=== PATIENT | male | born 1960 | race Caucasian/White ===

== ENCOUNTER 2018-03-24 08:47 | Inpatient (IN) ==
[2018-03-24] MEDS ORDERED: Chlorhexidine Gluconate 2% 1 Pack (2 Cloths) TOPICAL SCH (09:30)
[2018-03-24] MEDS ORDERED: Metoprolol Tartrate 25 MG Tablet PO SCH (09:30)
[2018-03-24] MEDS ORDERED: Chlorhexidine 4% Topical 120 APPLIC/120 ML Bottle TOPICAL SCH (09:30)
[2018-03-24] MEDS ORDERED: Sodium Chlor 0.9% Inj 500 ML IV.SIG SCH (10:00)
[2018-03-24] MEDS ORDERED: Vancomycin Inj 1 GM/200 ML PIGGYBACK IV.SIG SCH (10:00)
[2018-03-24] MEDS ORDERED: Propofol Inj 500 MG/50 ML Vial ONE (10:28)
[2018-03-24] MEDS ORDERED: HYDROmorphone PF Inj 2 MG/ML Vial ONE ×4 (10:28→20:04)
[2018-03-24] MEDS ORDERED: Bupivacaine/Epinephrine Inj 0.25% 50 ML Vial ONE (10:51)
[2018-03-24] MEDS: ceFAZolin 2 GM Premix Inj 2 GM/50 ML PIGGYBACK IV.SIG SCH ×2 (11:46→15:35)
[2018-03-24] MEDS ORDERED: Phenylephrine/NS 1000 MCG/10ML Syringe IV.PUSH ONE (12:00)
[2018-03-24] MEDS ORDERED: Lidocaine PF 1% Inj 5 ML Syringe INFILTRATN ONE (12:00)
[2018-03-24] MEDS ORDERED: Sodium Chlor 0.9% Inj 500 ML IV.SIG ONE (12:00)
[2018-03-24] MEDS ORDERED: fentaNYL Citrate Inj 100 MCG/2 ML Ampul ONE ×2 (14:43→17:08)
--- NOTE | 2018-03-24 14:49 | P.OP ---
- Preoperative Diagnosis (1) Cervical stenosis of spinal canal Comment: C3-4, C4-5, C5-6. Osteophyte disc complex C3-4, C4-5, C5-6. Status post anterior cervical fusion C6-7, remote. Cervical myelopathy. Cervical radiculopathy - Postoperative Diagnosis (1) Cervical stenosis of spinal canal Comment: C3-4, C4-5, C5-6. Osteophyte disc complex C3-4, C4-5, C5-6. Status post anterior cervical fusion C6-7, remote. Cervical myelopathy. Cervical radiculopathy Date of procedure: 03/24/18 Procedure: Exploration anterior cervical spine. Removal of anterior spinal segmental instrumentation, C6-7. Anterior cervical discectomy decompression and bilateral foraminotomies, C3-4. Anterior cervical discectomy decompression and bilateral foraminotomies, C4-5. Anterior cervical discectomy decompression and bilateral foraminotomies, C5-6. Left anterior iliac crest bone graft Anesthesia: GETA Surgeon: Geovany Arias MD Slab Puller: Annamaria Garcia PA-C Operation and Findings: EBL: 100 cc INDICATIONS: This patient is a 57-year-old white male with a cervical myelopathy and evidence of bilateral cervical radiculopathy. This patient has had a previous ACDF C6-7 approximately 23 years ago. The patient had a right- sided foraminotomies, C4-5 in the past. He has significant spinal stenosis worse at the C5-6 level but also osteophyte disc complexes C3-4 and C4-5. He presents for surgical treatment. NOTE: Annamaria Garcia PA-C was present for the entire surgical procedure as my environmental assistant. In my medical opinion her skill and care was necessary for proper management of this patient PROCEDURE: The patient was brought to the operating room and anesthetized in the supine position. This patient was positioned supine on the radiolucent table. All pressure points were protected in the anterior cervical spine and iliac crest was scrubbed with alcohol followed by Hibiclens followed by ChloraPrep. A timeout was done and antibiotics were given within 1 hour time window. Lateral radiographic images were used identifying the proper level. A right anterior incision was made crossing the previous incision and along the region of the sternocleidomastoid and slightly medial.. The platysma was opened in line with the incision. Deep dissection continued in the interval between the carotid sheath and the esophagus. The longus-coli muscles were lifted on both sides and retractors were positioned allowing good exposure. Lateral radiographic images were used to identify the proper level. Dissection continued along the edges of the previous plate. Deep retractors were positioned allowing good visualization. The previous screws were removed in retrograde fashion using the proper technique for this plate. The plate was removed without difficulty. Some bleeding from the screw holes of C6 were noted. Bone wax was placed over this. Dissection allowed good visualization of the C5-6 level. Naselle style interosseous pins were placed at C5 and C6 allowing exposure to that level. The microscope was rolled into the field. A total discectomy was accomplished and posterior osteophytes were removed. The posterior longitudinal ligament and annulus was taken down. Bilateral foraminotomies were accomplished. The endplates were squared up anticipating later bone grafting. A blunt probe could be placed out each foramen without evidence of nerve root compromise. The C6 pin was placed up to C4. An anterior exposure was accomplished at the C4 -5 level. We performed a total discectomy with excision of the posterior annulus and posterior longitudinal ligament. Bilateral foraminotomies were accomplished. Osteophytes were removed. The endplates were squared up anticipating later bone grafting. A blunt probe could be placed out each foramen without evidence of nerve root compromise. The C5 pin was placed up to see 3. An anterior exposure was accomplished. We performed a total discectomy with excision of the posterior annulus and posterior longitudinal ligament. Bilateral foraminotomies were accomplished. Osteophytes were removed. The endplates were squared up anticipating later bone grafting. A blunt probe could be placed out each foramen without evidence of nerve root compromise. The left iliac crest was approached. A small stab incision was made allowing percutaneous access to the anterior iliac crest. Multiple cores of cancellous bone were harvested and taken to the back table to be used for later bone grafting. The wound was irrigated anesthetized and closed with 4-0 Vicryl followed by Dermabond. The case was turned over to Dr. Antwan Arias for fusion and instrumentation per his dictation. FINDINGS: There was evidence of a severe spinal stenosis at C5-6 and lesser at C4-5 and similar at C3-4. Bilateral foraminotomies were accomplished. The most aggressive foraminal stenosis was to the left at C4-5. There was no complication that was appreciated. There were no abnormal potentials registered by the neurophysiologist during the entire case. NOTE: This surgery was performed in 2 parts. The first part was the neurosurgical decompression performed under the variable power stereo microscope by the undersigned in addition to the bone graft. The second portion of the surgery will be performed by the orthopedic spine component by co -surgeon, Dr. Antwan Arias for the anterior fusion with interbody cage and anterior plate. The skill of 2 surgeons was necessary to perform distinct separate procedural services as dictated above and dictated in the following operative note by Dr. Antwan Arias.
[2018-03-24] MEDS ORDERED: Promethazine 25 MG Supp RECTAL PRN ×2 (16:10→19:46)
[2018-03-24] MEDS ORDERED: Post-op Orders (for Pharmacy) OTHER STA ×3 (16:10→19:46)
[2018-03-24] MEDS ORDERED: Bisacodyl 10 MG Supp RECTAL PRN ×3 (16:10→19:46)
--- NOTE | 2018-03-24 16:29 | XR ---
EXAM DATE: 03/24/2018 4:24 PM EDT AGE/SEX: 57 years / Male INDICATIONS: C3-4, C4-5, C5-6 anterior diskectomy and interbody fusion with intervertebral cages. CLINICAL DATA: This is the patient's initial encounter. Patient reports that signs and symptoms have been present for 1 day and indicates a pain score of Nonresponsive. MEDICAL/SURGICAL HISTORY: None. None. COMPARISON: No prior exams available for comparison. FINDINGS: Series of intraoperative images show 4 level anterior fixation from C3-4 through C5-6 with interverte bral disc prostheses. Hardware is all intact. CONCLUSION: 4 level anterior fixation with intervertebral disc prostheses from C3 through C6. Hardware is all int act and appropriately positioned Electronically signed by: Alfredo Rico MD 03/24/2018 4:28 PM EDT
--- NOTE | 2018-03-24 17:26 | MP ---
cc: Antwan Arias MD, Albert W MD Keller,Aguilar Gilliam DATE OF OPERATION: 03/24/2018 PREOPERATIVE DIAGNOSES: 1. C5-C6 herniated nucleus pulposus, osteophyte disk complex, moderate spinal stenosis, moderate spinal cord compression. 2. C4-5 central right-sided herniated nucleus pulposus, osteophyte disk complex, moderately severe right-sided foraminal stenosis, status post cervical laminectomy. 3. C3-4 central right-sided herniated nucleus pulposus, osteophyte disk complex, moderate right-sided foraminal stenosis 4. Status post C6-C7 ACDF with spinal instrumentation 5. 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 6. Cervical spine degenerative disease osteoarthritis. 7. History of psoriatic arthritis. POSTOPERATIVE DIAGNOSES: 1. C5-C6 herniated nucleus pulposus, osteophyte disk complex, moderate spinal stenosis, moderate spinal cord compression. 2. C4-5 central right-sided herniated nucleus pulposus, osteophyte disk complex, moderately severe right-sided foraminal stenosis, status post cervical laminectomy. 3. C3-4 central right-sided herniated nucleus pulposus, osteophyte disk complex, moderate right-sided foraminal stenosis 4. Status post C6-C7 ACDF with spinal instrumentation 5. 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 6. Cervical spine degenerative disease osteoarthritis. 7. History of psoriatic arthritis. PROCEDURE: C3-4, C4-5, C5-6 anterior interbody fusion;, C3-4 C4-5, C5-6 Spinet ACC anterior cervical cage; C3-C6 anterior spinal instrumentation using Spinet Rauscher anterior spinal instrument; C3-4, C4-5, C5-6 Spinet ACC anterior cages. SURGEON: Antwan Arias MD ANESTHESIA: Silva Baez PA-C. ESTIMATED BLOOD LOSS: 500 mL for entire case CONDITION: Stable. DRAINS: 1. COMPLICATIONS: None. ANESTHESIA: General. PLAN OF ACTIVITY: Per orders. PROCEDURE IN DETAIL: Dr. Geovany Arias and myself were co-surgeons. Dr. Geovany Arias performed the neurosurgical decompression portion of the procedure. He performed a C3-4, C4-5, C5-6 anterior cervical diskectomy, anterior decompression foraminotomies. He also performed C6-7 removal of anterior spinal instrumentation, anterior cervical fusion and left anterior iliac crest bone grafting. I was not present for his portion of the procedure. As co-surgeon, I performed the orthopedic spinal fusion and stabilization, which is well described in my operative note. My prosthetics assistant Silva Baez PA-C was present for my portion of the surgical case. She was medically necessary for the entire case, because of the complexity of the case and to facilitate the performance of the procedure. The FIREPOT OPERATOR AND TENDER at the back table is not a skill set for this case to manipulate the instruments, e.g., multiple different types of soft tissue retractors, trial implants, and permanent implants. PROCEDURE IN DETAIL: The patient was brought into the operating room, had satisfactory anesthesia by department of anesthesia. Dr. Geovany Arias performed the decompressive portion of the procedure. The endplates at C6-7 were prepared for fusion. The hyaline cartilage endplate were removed using angled curettes and burs. A 7 10 x 12 ACC cage was placed in the interspace. Anterior iliac crest autologous bone graft used for interbody fusion under fluoroscopic guidance. The endplates of C4-5 were prepared for fusion. The hyaline cartilage endplates were removed angled curettes and burs. A 6 10 x 12 ACC cage was placed in interspacer. Anterior iliac crest bone graft used under fluoroscopic guidance for interbody fusion. The patient's interspace at C3-4 were prepared for fusion. Hyaline cartilage endplate were removed using curettes and burs. A 6 10 x 12 ACC cage was placed in the interspace. Anterior iliac crest bone graft used under fluoroscopic guidance for interbody fusion. Osteophytes were removed, anterior cervical spine. This was with rongeurs and burs. A 69 mm Spinet Rauscher plate was used for anterior spinal implantation. Because of the patient's cervical lordosis, the plate was contoured to the appropriate dimensions. Two transfixion pins and 2 transfixion screws were used for positioning of the plate, which was checked under fluoroscopic guidance AP and lateral plane for appropriate positioning of the plate. Two screws were used in the vertebral body of C3, C4, C5, and C6. Each of the screws were 14 mm in length, 4.0 mm in diameter fixed angle screws. Each of the screw holes were drilled and each of the screws were inserted and each screw head was appropriately locked to the plate. The wound was irrigated with copious amounts of sterile saline antibiotic solution and the wound itself was dry. It was closed over 1/8 inch Hemovac drain. Wound was closed in multiple layers using a 3-0 Vicryl suture, skin approximated with running subcuticular 4-0 Vicryl, Dermabond and. sterile dressings were applied. The patient was placed in a [place] cervical orthosis. The patient tolerated the procedure well and arrived in the recovery room in stable and satisfactory condition. MD GONZALEZ Hurtado/ , 04:31 PM , 05:25 PM MTDD
[2018-03-24] MEDS ORDERED: lamoTRIgine 100 MG Tablet PO SCH (21:00)
[2018-03-24] MEDS ORDERED: Senna/Docusate Sodium 8.6/50 MG Tablet PO SCH (21:00)
[2018-03-24] MEDS ORDERED: TAPENTADOL 200 MG PO PRN (22:00)
[2018-03-24] MEDS: ALPRAZolam 0.5 MG Tablet PO PRN (22:36)
[2018-03-25] MEDS: Sod Chloride 0.9% Inj 1,000 ML IV.CONT SCH ×2 (02:51→08:54)
[2018-03-25] MEDS: Senna/Docusate Sodium 8.6/50 MG Tablet PO SCH ×2 (02:52→08:54)
--- NOTE | 2018-03-25 07:03 | P.PNOP ---
Subjective Interval history: POD#1 C3-C6 ACDF C/O dysphagia No c/o numbness/weakness Explained operative findings;answered multiple questions Physical Exam Vital signs: Vital Signs 03/24/18 10:15 03/24/18 17:00 03/24/18 17:15 Temperature 98.5 F 98.0 F 98.0 F Pulse Rate 104 H 102 H Respiratory Rate 18 14 14 Blood Pressure 142/92 H 163/102 H 151/96 H Pulse Oximetry 97 99 100 03/24/18 17:30 03/24/18 17:45 03/24/18 18:00 Temperature 98.0 F 98.0 F 98.0 F Pulse Rate 104 H 109 H 110 H Respiratory Rate 14 14 14 Blood Pressure 147/94 H 152/99 H 161/99 H Pulse Oximetry 100 100 97 03/24/18 18:15 18 18:30 03/24/18 18:45 Temperature 98.0 F 98.0 F 98.0 F Pulse Rate 112 H 110 H 110 H Respiratory Rate 14 14 14 Blood Pressure 150/91 H 138/81 133/70 Pulse Oximetry 96 98 97 03/24/18 19:00 03/24/18 19:15 03/24/18 19:30 Temperature 98.0 F 98.0 F 98.0 F Pulse Rate 107 H 110 H 110 H Respiratory Rate 14 14 14 Blood Pressure 134/74 132/71 134/71 Pulse Oximetry 97 96 97 03/24/18 19:45 03/24/18 20:54 03/25/18 00:30 Temperature 98.0 F 97.9 F 98.2 F Pulse Rate 113 H 111 H 106 H Respiratory Rate 14 19 18 Blood Pressure 127/68 137/82 116/75 Pulse Oximetry 97 97 96 Intake & Output 03/24/18 03/24/18 03/25/18 06:59 18:59 06:59 Intake Total 2950 / 2950 460 / 460 Output Total 1100 / 1100 940 / 940 Balance 1850 / 1850 -480 / -480 Weight 89.8 kg 87.09 kg Intake: IV 1250 / 1250 100 / 100 LR 1000 mL Inj 1,000 ML @ 30 1000 / 1000 mls/hr IV.SIG .Q24H [facility] Rx#: [id number] Vancomycin Inj 1 gm In 200 ml @ 200 / 200 200 mls/hr IV.SIG [employer] [facility] Rx#:[id number] Ancef 2 GM Premix Inj 2 gm In 50 / 50 50 ml @ 100 mls/hr IV.SIG ETH[employer]LEN[employer] [facility] Rx#:[id number] Ancef Inj 1,000 MG In NS Inj 100 / 100 100 ML @ 200 mls/hr IV.SIG Q8H [facility] Rx#:[id number] Oral 360 / 360 Anesthesia Amount 1700 / 1700 Output: Urine 900 / 900 Estimated Blood Loss 500 / 500 Urine Amount (Catheter) 600 / 600 Indwelling Urethral Catheter 600 / 600 Wound Drainage 40 / 40 # 1 Anterior Neck Yinka 40 / 40 Other: Date of Last Bowel Movement 03/24/18 # Bowel Movements 0 Weight On Admission 89.8 kg Good strength UE,LE No hip pain Neg porter's - Urinary Catheter Management Indwelling Urethral Catheter Cath placed during this visit: yes, but has since been removed by the nurse Reason for continuing: Hourly intake/output Insertion date: 03/24/18 Insertion time: 11:20 Removal date: 03/24/18 Removal time: 16:28 Results - Imaging Impressions Cervical Spine X-Ray 03/24/18 00:00 CONCLUSION: 4 level anterior fixation with intervertebral disc prostheses from C3 through C6. Hardware is all intact and appropriately positioned Assessment and Plan - Ortho Post Op Day # 1 - Assessment and Plan Ortho stable D/C drain D/C home today if medically stable
[2018-03-25] MEDS ORDERED: Lisinopril 10 MG Tablet PO SCH (09:00)
[2018-03-25] MEDS ORDERED: lamoTRIgine 100 MG Tablet PO SCH (09:00)
[2018-03-25] MEDS ORDERED: Duloxetine 60 MG DR Capsule PO SCH (09:00)
[2018-03-25] MEDS ORDERED: Pregabalin 25 MG Capsule PO SCH (09:00)
[2018-03-25] MEDS: ALPRAZolam 0.5 MG Tablet PO PRN (11:14)
--- NOTE | 2018-03-25 13:06 | P.CON ---
History of Present Illness Service: Hospitalist Consult date: 03/25/18 Requesting Physician: Antwan Arias Reason for Consult: medical management. Primary Care Provider: No Primary Care Physician Family Provider: No Primary Care Physician Chief Complaint: spinal stenosis History of Present Illness: Mr. Pena is a pleasant 57-year-old male with a history of Tarlov cyst, cervical spinal stenosis, hypertension, anxiety who underwent surgical intervention on 03/25/2018. Surgical interventions included ACDF C3-C4 , C4-C5, C5-C6 as well as left anterior iliac crest bone graft, removal of anterior spinal segmental instrumentation C6-C7. Hospitalist service was consulted for medical management. At the time of this interview, patient is sitting at the side of his bed and eating lunch. He denies any acute concerns. He does inquire about one of his home medications (Tapentadol) to see if that can be restarted. He denies any chest pain, shortness of breath, fever, chills. No changes in bowel or bladder habits. Review of Systems All other systems reviewed negative except as stated in HPI PMFSH - History History Provided By: Significant Other - Medical History Medical History: Medical History (Last Updated 03/24/18 @ 10:10 by Jackie Rodriguez) Psoriatic arthritis - Surgical History Surgical History: Surgical History (Last Updated 03/24/18 @ 10:10 by Jackie Rodriguez) H/O hernia repair H/O laminectomy History of fusion of cervical spine Hx of nasal septoplasty - Tobacco History Second Hand Smoke Exposure: No Tobacco Use In Past 30 Days: No Smoking Status: Never smoker - Alcohol History How Often Do You Have a Drink Containing Alcohol: Never - Substance Use History Substance History: No History of Abuse - Travel History Recent Travel in the [place] Within the Last 8 Weeks: No Recent Travel Out of the Country Within the Last 8 Weeks: No Medications and Allergies Active Medications: Active Medications Hydrocodone Bitart/Acetaminophen ([place] 7.5/325) 1 tab PO Q4H PRN PRN Reason: BREAKTHROUGH PAIN Last Admin: 03/25/18 08:25 Dose: 1 tab Al Hydroxide/Mg Hydroxide (Milk Of Magnesia Liq) 30 ml PO Q12H PRN PRN Reason: Mild Constipation Alprazolam (Xanax) 0.5 mg PO PRN PRN PRN Reason: Anxiety Last Admin: 03/25/18 11:14 Dose: 0.5 mg Bisacodyl (Dulcolax Supp) 10 mg RECTAL DAILY PRN PRN Reason: SEVERE CONSITIPATION Duloxetine HCl (Cymbalta) 60 mg PO DAILY [facility] Last Admin: 03/25/18 08:24 Dose: 60 mg Eszopiclone (Lunesta) 3 mg PO [facility] Last Admin: 03/24/18 20:59 Dose: 3 mg Cefazolin Sodium 1,000 mg/ (Sodium Chloride) 100 mls @ 200 mls/hr IV.SIG Q8H [facility] Stop: 03/25/18 14:29 Last Admin: 03/25/18 05:02 Dose: 200 mls/hr Sodium Chloride (Ns Inj) 1,000 mls @ 80 mls/hr IV.CONT .[id number] [facility] Last Admin: 03/25/18 08:54 Dose: 80 mls/hr Lactulose (Lactulose Liq) 30 ml PO DAILY PRN PRN Reason: SEVERE CONSITIPATION Lamotrigine (Lamictal) 150 mg PO DAILY [facility] Lamotrigine (Lamictal) 200 mg PO [facility] Last Admin: 03/24/18 21:00 Dose: 200 mg Lisinopril (Prinivil) 10 mg PO DAILY [facility] Last Admin: 03/25/18 08:24 Dose: 10 mg Metoprolol Tartrate (Lopressor) 25 mg PO STOGIE PACKER [facility] Stop: 03/27/18 09:18 Miscellaneous (Pill Splitter) 1 each OTHER UNSCH PRN PRN Reason: PILL SPLIT Miscellaneous Information (Misc Nursing Information) 1 each OTHER UNSCH PRN PRN Reason: SEE LABEL COMMENTS Stop: 03/25/18 16:58 Ondansetron HCl (Zofran Odt) 4 mg PO Q6H PRN PRN Reason: NAUSEA OR VOMITING Ondansetron HCl (Zofran Inj) 4 mg IV.PUSH Q6H PRN PRN Reason: NAUSEA OR VOMITING Tapentadol 200 Mg 1 each PO BID PRN PRN Reason: PAIN SCALE 1 TO 10 Pregabalin (Lyrica) 25 mg PO DAILY [facility] Last Admin: 03/25/18 08:24 Dose: 25 mg Promethazine HCl (Phenergan Supp) 25 mg RECTAL Q6H PRN PRN Reason: NAUSEA OR VOMITING Promethazine HCl (Phenergan) 25 mg PO Q6H PRN PRN Reason: NAUSEA OR VOMITING Propranolol HCl (Inderal) 20 mg PO BID [facility] Last Admin: 03/25/18 08:23 Dose: 20 mg Senna/Docusate Sodium (Jayla-Colace) 1 tab PO BID [facility] Last Admin: 03/25/18 08:54 Dose: 1 tab Sennosides (Senokot) 17.2 mg PO Q12H PRN PRN Reason: Moderate Constipation Sodium Chloride (Ns Flush) 2 ml IV.FLUSH BID [facility] Last Admin: 03/25/18 08:54 Dose: 2 ml Sodium Chloride (Ns Flush) 2 ml IV.FLUSH PRN PRN PRN Reason: FLUSH AFTER USING IV ACCESS Vitamin D (Vitamin D3) 2,000 unit PO DAILY [facility] Last Admin: 03/25/18 08:24 Dose: 2,000 unit Allergies Allergy/AdvReac Type Severity Reaction Status Date / Time tramadol Allergy Severe Nausea/Vomi Verified 03/24/18 09:47 ting morphine Allergy Intermediate Nausea/Vomi Verified 03/24/18 09:47 ting sulfasalazine Allergy Intermediate Nausea/Vomi Verified 03/24/18 09:47 ting Home Medications Medication Instructions Recorded Confirmed Type alprazolam [Xanax] 0.5 mg PO PRN PRN 03/24/18 03/24/18 History cholecalciferol (vitamin D3) 2,000 unit PO DAILY 03/24/18 03/24/18 History [Vitamin D3] duloxetine [Cymbalta] 60 mg PO DAILY 03/24/18 03/24/18 History eszopiclone [Lunesta] 3 mg PO 03/24/18 03/24/18 History hydrocodone-acetaminophen 1 tab PO Q4-6H PRN 03/24/18 03/24/18 History lamotrigine [Lamictal] 150 mg PO DAILY 03/24/18 03/24/18 History lamotrigine [Lamictal] 200 mg PO 03/24/18 03/24/18 History lisinopril 10 mg PO DAILY 03/24/18 03/24/18 History pregabalin [Lyrica] 25 mg PO DAILY 03/24/18 03/24/18 History propranolol 20 mg PO BID 03/24/18 03/24/18 History tapentadol [Nucynta] 200 mg PO BID PRN 03/24/18 03/24/18 History Physical Exam Vital signs: Vital Signs 03/24/18 17:00 03/24/18 17:15 03/24/18 17:30 Temperature 98.0 F 98.0 F 98.0 F Pulse Rate 104 H 102 H 104 H Respiratory Rate 14 14 14 Blood Pressure 163/102 H 151/96 H 147/94 H Pulse Oximetry 99 100 100 03/24/18 17:45 03/24/18 18:00 03/24/18 18:15 Temperature 98.0 F 98.0 F 98.0 F Pulse Rate 109 H 110 H 112 H Respiratory Rate 14 14 14 Blood Pressure 152/99 H 161/99 H 150/91 H Pulse Oximetry 100 97 96 03/24/18 18:30 03/24/18 18:45 03/24/18 19:00 Temperature 98.0 F 98.0 F 98.0 F Pulse Rate 110 H 110 H 107 H Respiratory Rate 14 14 14 Blood Pressure 138/81 133/70 134/74 Pulse Oximetry 98 97 97 03/24/18 19:15 03/24/18 19:30 03/24/18 19:45 Temperature 98.0 F 98.0 F 98.0 F Pulse Rate 110 H 110 H 113 H Respiratory Rate 14 14 14 Blood Pressure 132/71 134/71 127/68 Pulse Oximetry 96 97 97 03/24/18 20:54 03/25/18 00:30 03/25/18 08:00 Temperature 97.9 F 98.2 F 97.7 F Pulse Rate 111 H 106 H 88 Respiratory Rate 19 18 17 Blood Pressure 137/82 116/75 143/88 H Pulse Oximetry 97 96 97 Intake & Output 03/24/18 03/25/18 03/25/18 18:59 06:59 18:59 Intake Total 2950 / 2950 460 / 460 1000 / 1000 Output Total 1100 / 1100 940 / 940 Balance 1850 / 1850 -480 / -480 1000 / 1000 Weight 89.8 kg 87.09 kg Intake: IV 1250 / 1250 100 / 100 1000 / 1000 NS Inj 1,000 ML @ 80 mls/hr IV. 1000 / 1000 CONT .[id number] [facility] Rx#:[id number] LR 1000 mL Inj 1,000 ML @ 30 1000 / 1000 mls/hr IV.SIG .Q24H [facility] Rx#: [id number] Vancomycin Inj 1 gm In 200 ml @ 200 / 200 200 mls/hr IV.SIG STOGIE PACKER [facility] Rx#:[id number] Ancef 2 GM Premix Inj 2 gm In 50 / 50 50 ml @ 100 mls/hr IV.SIG STOGIE PACKER [facility] Rx#:[id number] Ancef Inj 1,000 MG In NS Inj 100 / 100 100 ML @ 200 mls/hr IV.SIG Q8H [facility] Rx#:[id number] Oral 360 / 360 Anesthesia Amount 1700 / 1700 Output: Urine 900 / 900 Estimated Blood Loss 500 / 500 Urine Amount (Catheter) 600 / 600 Indwelling Urethral Catheter 600 / 600 Wound Drainage 40 / 40 # 1 Anterior Neck Yinka 40 / Other: Date of Last Bowel Movement 03/24/18 # Bowel Movements 0 Weight On Admission 89.8 kg Narrative: GENERAL: This is a well-nourished, well-developed patient, in no apparent distress. SKIN: No rashes, ecchymoses or lesions. Warm and dry. HEAD: Atraumatic. Normocephalic. No temporal or scalp tenderness. EYES: Pupils equal round and reactive. No injection or drainage. ENT: Nose without bleeding, purulent drainage or septal hematoma. Airway patent. NECK: Trachea midline. No lymphadenopathy. Supple, nontender, no meningeal signs. CARDIOVASCULAR: Regular rate and rhythm without murmurs, gallops, or rubs. No JVD. RESPIRATORY: Clear to auscultation. Breath sounds equal bilaterally. No wheezes , rales, or rhonchi. GASTROINTESTINAL: Abdomen soft, non-tender, nondistended. No guarding. MUSCULOSKELETAL: Extremities without clubbing, cyanosis, or edema. NEUROLOGICAL: Awake and alert. Cranial nerves II through XII intact. No focal neurological deficits. Normal speech. - Urinary Catheter Management Indwelling Urethral Catheter Cath placed during this visit: yes, but has since been removed by the nurse Reason for continuing: Hourly intake/output Insertion date: 03/24/18 Insertion time: 11:20 Removal date: 03/24/18 Removal time: 16:28 Assessment and Plan - Assessment (1) Cervical stenosis of spinal canal Code(s): M48.02 - Spinal stenosis, cervical region Status: Acute - Plan Patient is a pleasant 57-year-old male with a history of cervical spinal stenosis, hypertension, anxiety who underwent ACDF on 03/25/2018. Cervical spinal stenosis -Status post 4 level ACDF. -Pain is adequately controlled Hypertension -continue lisinopril 10 mg daily Anxiety -continue 0.5 mg p.o. as needed. Overall, patient is hemodynamically stable. He is tolerating diet well. From medical standpoint, he can be discharged. Full code. Thank you for the consult. We will continue to follow this patient with you while patient is in the hospital.
[2018-03-25 14:10] VITALS: RESP 18
[2018-03-25 18:05] VITALS: BP 151/88; PULSE 79; TEMP 97.6; O2SAT 98
== END 2018-03-25 18:30 | disposition home or self-care (01) ==
LOC: HSDI 08:47 → N06 20:28
PROVIDERS: ADMIT Orthopaedic Surgery Orthopaedic Surgery of the Spine; ATTEND Orthopaedic Surgery Orthopaedic Surgery of the Spine

== ENCOUNTER 2018-04-07 08:23 | Inpatient (IN) ==
[2018-04-07] MEDS ORDERED: Chlorhexidine 4% Topical 120 APPLIC/120 ML Bottle TOPICAL SCH (09:15)
[2018-04-07] MEDS ORDERED: Chlorhexidine Gluconate 2% 1 Pack (2 Cloths) TOPICAL SCH (09:15)
[2018-04-07] MEDS ORDERED: Metoprolol Tartrate 25 MG Tablet PO SCH (09:15)
[2018-04-07] MEDS ORDERED: ceFAZolin 2 GM Premix Inj 2 GM/50 ML PIGGYBACK IV.SIG SCH (10:00)
[2018-04-07] MEDS ORDERED: Vancomycin Inj 1 GM/200 ML PIGGYBACK IV.SIG SCH (10:00)
[2018-04-07] MEDS ORDERED: Sodium Chlor 0.9% Inj 500 ML IV.SIG PRN (10:00)
[2018-04-07] MEDS ORDERED: Hypromellose 0.3% Opth Gel 10 GM Bottle ONE (10:24)
[2018-04-07] MEDS ORDERED: HYDROmorphone PF Inj 2 MG/ML Vial ONE ×3 (10:59→14:39)
[2018-04-07] MEDS ORDERED: Propofol Inj 500 MG/50 ML Vial ONE (11:00)
[2018-04-07] MEDS ORDERED: Famotidine PF Inj 20 MG/2 ML Vial ONE (11:00)
[2018-04-07] MEDS ORDERED: Bupivacaine/Epinephrine Inj 0.25% 50 ML Vial ONE (11:08)
[2018-04-07] MEDS ORDERED: Glycopyrrolate Inj 1 MG/5 ML Syringe IV.PUSH ONE (12:00)
[2018-04-07] MEDS ORDERED: Neostigmine Inj 5 MG/5 ML Syringe IV.PUSH ONE (12:00)
[2018-04-07] MEDS ORDERED: Phenylephrine/NS 1000 MCG/10ML Syringe IV.PUSH ONE (12:00)
[2018-04-07] MEDS ORDERED: Lidocaine PF 1% Inj 5 ML Syringe INFILTRATN ONE (12:00)
[2018-04-07] MEDS ORDERED: Post-op Orders (for Pharmacy) OTHER STA (13:43)
[2018-04-07] MEDS ORDERED: Bisacodyl 10 MG Supp RECTAL PRN (13:43)
--- NOTE | 2018-04-07 13:55 | P.OP ---
- Preoperative Diagnosis (1) Cervical spine ankylosis Comment: C3-4, C4-5, C5-6 (2) Cervical stenosis of spinal canal Comment: C3-4, C4-5, C5-6. Osteophyte disc complex C3-4, C4-5, C5-6. Status post anterior cervical fusion C6-7, remote. Cervical myelopathy. Cervical radiculopathy - Postoperative Diagnosis (1) Cervical stenosis of spinal canal Comment: C3-4, C4-5, C5-6. Osteophyte disc complex C3-4, C4-5, C5-6. Status post anterior cervical fusion C6-7, remote. Cervical myelopathy. Cervical radiculopathy (2) Cervical spine ankylosis Date of procedure: 04/07/18 Procedure: Posterior cervical fusion C3-4, C4-5, C5-6. Placement of intra-facet cages bilateral C3-4, C4-5, C5-6 with screw fixation. Left posterior iliac crest bone graft Anesthesia: GETA Surgeon: Geovany Arias MD Coconut Candy Maker: Annamaria Garcia PA-C Operation and Findings: EBL: 100 cc INDICATIONS: This patient is a 57-year-old male status post previous fusion successfully at C6-7. The patient developed significant cervical stenosis with cervical myelopathy and an osteophyte disc complex worse at C3-4 and C5-6. The patient is approximately 2 weeks status post ACDF C3-4, C4-5, C5-6 with removal of hardware at C6-7. He now presents for staged posterior cervical fusion C3-4 through C5-6 NOTE: Annamaria Garcia PA-C was present for the entire surgical procedure as my legal support assistant. In my medical opinion her skill and care was necessary for proper management of this patient PROCEDURE: The patient was brought the operating room and anesthetized in the supine position. The patient was positioned prone on a Gume table. The arms were placed out along the side and taping was utilized to ensure adequate visualization. AP and lateral radiographic images were used identifying the proper level and allowing excellent exposure for purpose of the cervical fusion. A timeout was done and antibiotics were given within a routine time window. A small incision was made over the left iliac crest bone graft. A series of cores of bone graft were harvested with a special percutaneous device. The bone graft was taken to the back table to be mixed with stem cell bone graft for the later part of the case Using AP and lateral radiographs, skin markings were made. On the right side and 18-gauge spinal needle was placed down to the proper level. The left side a separate incision was made and we used the TrigeminaRAX system. Exposure was afforded down to the proper level. Under visualization, a chisel was placed down to the C5-6 level. This was confirmed under radiographs to be in proper position. Exposure was satisfactory. This is placed down into the facet joint at that level. A decorticating device was utilized decorticating the bone of the facet above and below. A retractor was placed down over the access chisel allowing exposure to the joint and exposure to the articular cartilage. A drilling system was utilized removing cartilage and bone this region followed by a rasp. On the back table demineralized bone matrix was mixed with Nucel stem cells and a autogenous bone graft. A combination of both these were then paced placed into proper cages. The cages were impacted into the proper position and checked again under AP and lateral fluoroscopic images. A transfixation screw was placed into the cage having excellent fixation into the facet joint of the level above. The back side of the cage was filled with additional bone graft which was tamped into position. The retractor was removed. On the right side a separate incision was made. Using the likewise sequence of access to the same level, an incision was made allowing visualization for placement of an access chisel which was placed into the joint followed by decortication with excellent visualization. A final retractor was positioned holding this while we were able to drill and use the rasp. The joint was prepared and we created a space for the cage. The cage was filled with bone graft and impacted in proper position. A transfixation screw was fixated at that time and alignment was satisfactory. Additional bone graft placed along the posterior aspect of the cage and the facet joint and was tamped into position. At the C 45 level, this was repeated in the likewise fashion. A decorticating device was utilized decorticating the bone of the facet above and below. A retractor was placed down over the access chisel allowing exposure to the joint and exposure to the articular cartilage. A drilling system was utilized removing cartilage and bone this region followed by a rasp. On the back table demineralized bone matrix was mixed with Nucel stem cells and a autogenous bone graft. A combination of both these were then paced placed into proper cages. The cages were impacted into the proper position and checked again under AP and lateral fluoroscopic images. A transfixation screw was placed into the cage having excellent fixation into the facet joint of the level above. The back side of the cage was filled with additional bone graft which was tamped into position. The retractor was removed. On the right side this was repeated in the likewise fashion. Using the likewise sequence of access to the same level. An access chisel was placed into the joint followed by decortication with excellent visualization. A final retractor was positioned holding this while we were able to drill and use the rasp. The joint was prepared and we created a space for the cage. The cage was filled with bone graft and impacted in proper position. A transfixation screw was fixated at that time and alignment was satisfactory. Additional bone graft placed along the posterior aspect of the cage and the facet joint and was tamped into position. At the C3-4 level, this was repeated in the likewise fashion. A decorticating device was utilized decorticating the bone of the facet above and below. A retractor was placed down over the access chisel allowing exposure to the joint and exposure to the articular cartilage. A drilling system was utilized removing cartilage and bone this region followed by a rasp. On the back table demineralized bone matrix was mixed with Nucel stem cells and a autogenous bone graft. A combination of both these were then paced placed into proper cages. The cages were impacted into the proper position and checked again under AP and lateral fluoroscopic images. A transfixation screw was placed into the cage having excellent fixation into the facet joint of the level above. The back side of the cage was filled with additional bone graft which was tamped into position. The retractor was removed. On the right side this was repeated in the likewise fashion. Using the likewise sequence of access to the same level. An access chisel was placed into the joint followed by decortication with excellent visualization. A final retractor was positioned holding this while we were able to drill and use the rasp. The joint was prepared and we created a space for the cage. The cage was filled with bone graft and impacted in proper position. A transfixation screw was fixated at that time and alignment was satisfactory. Additional bone graft placed along the posterior aspect of the cage and the facet joint and was tamped into position. Intraoperative x-rays in AP and lateral plane showed excellent positioning and stabilization . The wound was irrigated copiously. Hemostasis was controlled. The fascia was closed with interrupted Vicryl suture skin and subcutaneous tissue with 3-0 Vicryl suture followed by Dermabond. The sponge count needle counts and sponge counts were all correct. The patient tolerated the procedure well as taken to the recovery room in satisfactory condition. FINDINGS: The patient had a previous partial facetectomy with foraminotomies to the right at C4-5. The cage was placed slightly lateral. Also at the C3-4 level to the right, cage placement appear to be best slightly lateral. There is no complication that was appreciated.
[2018-04-07] MEDS ORDERED: fentaNYL Citrate Inj 100 MCG/2 ML Ampul ONE (13:59)
[2018-04-07] MEDS ORDERED: ALPRAZolam 0.5 MG Tablet PO PRN (14:00)
[2018-04-07] MEDS ORDERED: *Meperidine Inj 25 MG/ML Vial PERIprocedural Use ONLY ONE (14:52)
--- NOTE | 2018-04-07 15:03 | XR ---
EXAM DATE: 04/07/2018 2:57 PM EDT AGE/SEX: 57 years / Male INDICATIONS: Posterior fusion C3 to C6. CLINICAL DATA: This is the patient's initial encounter. Patient reports that signs and symptoms have been present for 1 day and indicates a pain score of Nonresponsive. MEDICAL/SURGICAL HISTORY: None. Fusion, cervical. COMPARISON: [facility] – [place], CERVICAL SPINE [facility], 03/24/2018. . FINDINGS: Patient is status post anterior cervical fusion from C3 through C6. There is good alignment of the ce rvical spine and fusion. The hardware is grossly intact. CONCLUSION: Good position and alignment on this postoperative study. Electronically signed by: Jason Aguirre MD 04/07/2018 3:01 PM EDT
[2018-04-07] MEDS ORDERED: TAPENTADOL 200 MG PO PRN (15:45)
[2018-04-07] MEDS: Morphine Inj 4 MG/ML Vial IV.PUSH PRN (20:34)
[2018-04-07] MEDS: Senna/Docusate Sodium 8.6/50 MG Tablet PO SCH (20:35)
[2018-04-07] MEDS ORDERED: lamoTRIgine 100 MG Tablet PO SCH (21:00)
[2018-04-08] MEDS: Morphine Inj 4 MG/ML Vial IV.PUSH PRN (00:46)
--- NOTE | 2018-04-08 07:50 | P.DS ---
Date of admission: 04/07/18 16:00 Primary care physician: Christen Primary Care Physician Attending physician on discharge: Geovany Arias Anticipated date of discharge: 04/08/18 Brief History from admission: Previous ACDF. Now presents for staged posterior cervical fusion surgery. DS: Diagnosis - Discharge Diagnosis (1) Cervical stenosis of spinal canal Status: Acute (2) Cervical spine ankylosis Status: Acute DS: Medications - Discharge Medications Prescriptions: hydrocodone-acetaminophen 1 tab PO Q4H PRN #42 tab PRN Reason: Acute Pain DS: Summary Hospital Course: Surgical treatment was performed on the day of admission without complication. He recovered well in PACU and was transferred to the orthopaedic floor. Pain was controlled with IV and oral medications. He was compliant with her cervical collar. After 1 day he was found to be stable and discharged home. He was educated to continue his collar for 6 weeks, to pursue a soft diet for 48 hours followed by a high fiber diet for 7 days, and to ice the operative site 1- 2 times daily. He was given a prescription for [place]. - Time Spent with Patient Total time spent providing and/or coordinating discharge services: - Quality: VTE Deep Vein Thrombosis/Pulmonary Embolism Present on Admission: No Exam Vital signs: Vital Signs 04/07/18 09:46 04/07/18 13:53 04/07/18 14:00 Temperature 98.1 F 98.3 F Pulse Rate 81 95 H 91 H Respiratory Rate 18 10 L 14 Blood Pressure 132/95 H 164/95 H 160/99 H Pulse Oximetry 98 100 98 04/07/18 14:15 04/07/18 14:30 04/07/18 14:45 Temperature Pulse Rate 92 H 92 H 90 Respiratory Rate 15 15 15 Blood Pressure 165/99 H 154/97 H 143/95 H Pulse Oximetry 100 04/07/18 15:00 04/07/18 15:30 04/07/18 16:00 Temperature Pulse Rate 95 H 92 H 96 H Respiratory Rate 15 15 16 Blood Pressure 143/89 H 131/70 120/63 Pulse Oximetry 95 04/07/18 16:15 04/07/18 16:20 04/07/18 17:52 Temperature 97.6 F 97.6 F Pulse Rate 99 H 104 H Respiratory Rate 16 15 Blood Pressure 114/68 139/85 Pulse Oximetry 95 96 97 04/07/18 20:00 04/08/18 00:00 04/08/18 04:00 Temperature 97.5 F L 98.0 F 98.1 F Pulse Rate 112 H 80 75 Respiratory Rate 18 17 16 Blood Pressure 141/88 H 133/78 126/72 Pulse Oximetry 96 95 95 Intake & Output 04/07/18 04/08/18 04/08/18 18:59 06:59 18:59 Intake Total 1200 / 1200 100 / 100 Output Total 20 / 20 Balance 1180 / 1180 100 / 100 Weight 85.1 kg 85.1 kg Intake: IV 1200 / 1200 100 / 100 LR 1000 mL Inj 1,000 ML @ 30 1200 / 1200 mls/hr IV.SIG .Q24H CAMRYN Rx#: [id number] Ancef Inj 1,000 MG In NS Inj 100 / 100 100 ML @ 200 mls/hr IV.SIG Q8H CAMRYN Rx#:[id number] Output: Estimated Blood Loss 20 / 20 Other: Post Void Residual 500 Weight On Admission 85.1 kg Results - Impressions ITS Impressions Cervical Spine X-Ray 04/07/18 00:00 CONCLUSION: Good position and alignment on this postoperative study. Discharge Plan - Discharge Disposition Patient Disposition: Discharge Home - Discharge Condition Condition: Stable - Discharge Order Discharge Orders: Discharge Order (Routine); Ordered 04/08/18 Ordered By: Amanda Schaffer - Discharge Details Anticipated Discharge Date: 04/08/18 - Physicians Team Primary Care Provider: Primary Care Christen Aleman Attending Provider: Geovany Arias - Rxs /Orders / Referrals /Forms Prescriptions: New hydrocodone-acetaminophen 7.5-325 mg Tablet 1 tab PO Q4H PRN (Reason: Acute Pain) Qty: 42 RF: 0 Continue alprazolam [Xanax] 0.5 mg Tablet 0.5 mg PO TID PRN (Reason: Anxiety) cholecalciferol (vitamin D3) [Vitamin D3] 2,000 unit Capsule 2,000 unit PO DAILY duloxetine [Cymbalta] 60 mg Capsule,Delayed Release(Dr/Ec) 60 mg PO DAILY eszopiclone [Lunesta] 3 mg Tablet 3 mg PO HS lamotrigine [Lamictal] 150 mg Tablet 150 mg PO DAILY lamotrigine [Lamictal] 200 mg Tablet 200 mg PO HS lisinopril 10 mg Tablet 10 mg PO DAILY pregabalin [Lyrica] 25 mg Capsule 25 mg PO DAILY propranolol 20 mg Tablet 20 mg PO BID tapentadol [Nucynta] 100 mg Tablet 200 mg PO BID PRN (Reason: Pain) Referrals: Primary Care Christen Aleman [Primary Care Provider] - See Instructions - Discharge Instructions Patient Printed Instructions: Laminectomy (DC) - Post Discharge Care Plan Care Plan Goals: Your Health Problems: Cervical spinal stenosis. 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 You can remove this for showering/hygiene only. Avoid any heavy lifting overhead. Avoid jarring or high impact activity. We recommend that you do not drive while in the brace due to your limited cervical range of motion. Goals to Promote Your Health: * To prevent worsening of your condition * To maintain your health at the optimal level Directions to Meet Your Goals: * Take your medications as prescribed * Follow your dietary instruction. We recommend a soft diet for 48 hours after surgery as your throat may be sore. After 48 hours you can resume a normal but high fiber diet to assist with return to normal bowel function. * Follow activity as directed * Keep your appointments as scheduled * Take your immunizations and boosters as scheduled * If your symptoms worsen call your PCP * If no PCP go to Urgent Care or Emergency Room Smoking is dangerous to your health. Avoid second hand smoke. You may reach the 24-hour crisis hotline for domestic abuse at .
--- NOTE | 2018-04-08 07:55 | P.PNOP ---
Subjective Interval history: Doing well. No shoulder or arm pain. Very comfortable Physical Exam Vital signs: Vital Signs 04/07/18 09:46 04/07/18 13:53 04/07/18 14:00 Temperature 98.1 F 98.3 F Pulse Rate 81 95 H 91 H Respiratory Rate 18 10 L 14 Blood Pressure 132/95 H 164/95 H 160/99 H Pulse Oximetry 98 100 98 04/07/18 14:15 04/07/18 14:30 04/07/18 14:45 Temperature Pulse Rate 92 H 92 H 90 Respiratory Rate 15 15 15 Blood Pressure 165/99 H 154/97 H 143/95 H Pulse Oximetry 100 04/07/18 15:00 04/07/18 15:30 04/07/18 16:00 Temperature Pulse Rate 95 H 92 H 96 H Respiratory Rate 15 15 16 Blood Pressure 143/89 H 131/70 120/63 Pulse Oximetry 95 04/07/18 16:15 04/07/18 16:20 04/07/18 17:52 Temperature 97.6 F 97.6 F Pulse Rate 99 H 104 H Respiratory Rate 16 15 Blood Pressure 114/68 139/85 Pulse Oximetry 95 96 97 04/07/18 20:00 04/08/18 00:00 04/08/18 04:00 Temperature 97.5 F L 98.0 F 98.1 F Pulse Rate 112 H 80 75 Respiratory Rate 18 17 16 Blood Pressure 141/88 H 133/78 126/72 Pulse Oximetry 96 95 95 Intake & Output 04/07/18 04/08/18 04/08/18 18:59 06:59 18:59 Intake Total 1200 / 1200 100 / 100 Output Total 20 / 20 Balance 1180 / 1180 100 / 100 Weight 85.1 kg 85.1 kg Intake: IV 1200 / 1200 100 / 100 LR 1000 mL Inj 1,000 ML @ 30 1200 / 1200 mls/hr IV.SIG .Q24H CAMRYN Rx#: [id number] Ancef Inj 1,000 MG In NS Inj 100 / 100 100 ML @ 200 mls/hr IV.SIG Q8H CAMRYN Rx#:[id number] Output: Estimated Blood Loss 20 / 20 Other: Post Void Residual 500 Weight On Admission 85.1 kg Narrative: Motor examination 5/5. Brace fits well. Dressing dry Results - Imaging Impressions Cervical Spine X-Ray 04/07/18 00:00 CONCLUSION: Good position and alignment on this postoperative study. Assessment and Plan - Problem List (1) Cervical stenosis of spinal canal Code(s): M48.02 - Spinal stenosis, cervical region Status: Acute (2) Cervical spine ankylosis Code(s): M45.2 - Ankylosing spondylitis of cervical region Status: Acute - Assessment and Plan Status post ACDF C3-C6. Status post previous fusion, C6-7. Cervical spinal stenosis/cervical radiculopathy. SURGERY: Posterior cervical fusion with DTRAX intra-facet cages and instrumentation, C3-4, C4-5, C5-6: POD #1. PLAN: Discharge to home. Patient is on Nucynta. Prescription for oxycodone for breakthrough. Follow-up in 2 weeks. Full-time brace wear. Regular diet. Orthopedically stable
[2018-04-08] MEDS: Senna/Docusate Sodium 8.6/50 MG Tablet PO SCH (08:11)
[2018-04-08] MEDS ORDERED: Duloxetine 60 MG DR Capsule PO SCH (09:00)
[2018-04-08] MEDS ORDERED: Pregabalin 25 MG Capsule PO SCH (09:00)
[2018-04-08] MEDS ORDERED: lamoTRIgine 100 MG Tablet PO SCH (09:00)
[2018-04-08] MEDS ORDERED: Lisinopril 10 MG Tablet PO SCH (09:00)
== END 2018-04-08 12:41 | disposition home or self-care (01) ==
LOC: HSDI 08:23 → HSDC 08:23 → EDSTATUS 10:30 → OBSVTOIN 13:57 → N06 16:38
PROVIDERS: ADMIT Orthopaedic Surgery Orthopaedic Surgery of the Spine; ATTEND Orthopaedic Surgery Orthopaedic Surgery of the Spine